=== PATIENT | female | born 1965 | race Caucasian/White ===

== ENCOUNTER → 2020-01-15 08:39 | Outpatient (CLI) | payer BC, SELFPAY ==
--- NOTE | ~2020-01-15 | MMUS_ITS ---
EXAMINATION: MM diagnostic florin BI w amadou, US breast BI limited HISTORY: Patient with history of bilateral white nipple discharge. Family history of breast cancer in her mother. TECHNIQUE: Craniocaudal, mediolateral, and mediolateral oblique 3-D tomosynthesis images of the breas ts were performed and synthetic 2-D images were generated. CAD analysis was submitted and interpreted . High resolution limited bilateral breast ultrasound was performed. COMPARISON: 02/19/2018, 01/22/2017, 02/28/2015, 01/12/2013 BREAST PARENCHYMAL COMPOSITION: The breasts are heterogeneously dense, which may obscure small masses . FINDINGS: MAMMOGRAPHIC FINDINGS: There is no evidence of suspicious mass, calcification, or architectural distortion in either breast to suggest malignancy. There has been no suspicious interval change. No mammographic correlate is id entified for the patient's nipple discharge in either breast. ULTRASOUND: No sonographic correlate is identified for the patient's nipple discharge in either breast. IMPRESSION: 1. No specific mammographic or sonographic correlate is identified for the patient's bilateral nipple discharge. Further evaluation at this time should be based on clinical assessment. Continued follow- up physical examination is recommended. 2. Recommend routine screening mammography in one year. BI-RADS Category 1: Negative Reviewed, dictated and finalized at location A. IMPRESSION: 1. No specific mammographic or sonographic correlate is identified for the stepan ent's bilateral nipple discharge. Further evaluation at this time should be bas ed on clinical assessment. Continued follow-up physical examination is recommen ded. 2. Recommend routine screening mammography in one year. BI-RADS Category 1: Negative
== END ==
PROVIDERS: PCP Family Medicine; Visit Provider Nurse Practitioner
DX: N64.52 Nipple discharge (principal); N64.4 Mastodynia
CPT/HCPCS: 76642; 77062; 77066; G0279

== ENCOUNTER 2020-01-19 12:13 | Outpatient (CLI) | payer BC, SELFPAY ==
--- NOTE | 2020-01-19 12:27 | ECG_ITS ---
Measurements Intervals Point Comfort Rate: 75 P: -37 MD: 175 QRS: 56 QRSD: 67 T: 63 QT: 353 QTc: 395 Interpretive Statements SINUS OR ECTOPIC ATRIAL RHYTHM RSR' IN V1 OR V2, PROBABLY NORMAL VARIANT BORDERLINE ECG Electronically Signed On 01-19-2020 13:32:03 CDT by Roddy Wyatt D.O.
== END 2020-01-19 12:14 | disposition home or self-care (01) ==
PROVIDERS: PCP Family Medicine; Visit Provider Nurse Practitioner Family
DX: R07.9 Chest pain, unspecified (principal); R94.31 Abnormal electrocardiogram [ECG] [EKG]
CPT/HCPCS: 93005

== ENCOUNTER 2020-01-26 08:56 | Outpatient (CLI) | payer BC, SELFPAY ==
--- NOTE | 2020-01-29 07:49 | WPDHOLTEREM ---
Holter/Event Monitor Holter/Event Monitor Date of procedure: 01/26/20 Procedure Type: 24 hour holter monitor Indications: Chest pain Conclusion: 1. 24 hour holter monitor on 01/26/20. 2. Underlying rhythm is sinus rhythm. HR range 59-141 bpm; average HR 87 bpm. 3. There are 20 premature supraventricular complexes and 3 supraventricular couplets. No supraventricular tachycardia. 4. There is one premature ventricular complex. No ventricular tachycardia. 5. No sinoatrial or atrioventricular blocks. No significant pauses greater than 2 seconds. 6. Patient reports 8 episodes of pain which demonstrate Sinus rhythm, HR range 79-101 bpm.
== END 2020-01-26 08:57 | disposition home or self-care (01) ==
LOC: ANHCARD 08:59
PROVIDERS: PCP Family Medicine; Visit Provider Nurse Practitioner Family
DX: R07.89 Other chest pain (principal)
CPT/HCPCS: 93225; 93226

== ENCOUNTER 2020-02-26 09:06 | Outpatient (CLI) | payer BC, SELFPAY ==
--- NOTE | 2020-02-26 09:19 | EST_ITS ---
Patient Info Name: Dee Bills Age: 54 years : 1965 Gender: Female Ht: 64 in Wt: 125 lbs BSA: 1.60 m2 Exam Date: 02/26/2020 9:33 AM Exam Location: [facility] Stress Patient Status: Outpatient Admit Date: 02/26/2020 Staff Ordering Physician: Ayesha Dangelo NP Attending Provider: Ayesha Dangelo NP Exercise Technologist: Yolie Canales RDCS Exercise Physician: Roddy Wyatt DO Exam Type: CA stress test treadmill Study Info Indications R07.9 - Chest pain, unspecified A treadmill exercise stress test was performed. Summary 1. 1. Negative Natalio exercise stress test for ischemic ST changes by ECG criteria. 2. 2. Good functional capacity, achieving 7 METs of workload. 3. 3. Baseline hypertension. 4. 4. Appropriate HR response to exercise. 5. 5. Appropriate HR recovery at 1 minute post exercise. 6. 6. No imaging with stress testing. 7. 7. Patient informed of the above results. Protocol: Natalio Stress ECG Details Stage: REST Duration (min): 1 min : 13 sec Speed (mph): 0.0 Grade (%): 0 HR (bpm): 94 SBP (mmHg): 154 DBP (mmHg): 88 METS: --- Stage: REST Duration (min): 8 min : 21 sec Speed (mph): 0.0 Grade (%): 0 HR (bpm): 94 SBP (mmHg): 154 DBP (mmHg): 88 METS: --- Stage: STAGE 1 Duration (min): 1 min : 0 sec Speed (mph): 1.7 Grade (%): 10 HR (bpm): 116 SBP (mmHg): 154 DBP (mmHg): 88 METS: --- Stage: STAGE 1 Duration (min): 2 min : 0 sec Speed (mph): 1.7 Grade (%): 10 HR (bpm): 130 SBP (mmHg): 154 DBP (mmHg): 88 METS: --- Stage: STAGE 1 Duration (min): 3 min : 0 sec Speed (mph): 1.7 Grade (%): 10 HR (bpm): 140 SBP (mmHg): 182 DBP (mmHg): 59 METS: --- Stage: STAGE 2 Duration (min): 1 min : 0 sec Speed (mph): 2.5 Grade (%): 12 HR (bpm): 145 SBP (mmHg): 182 DBP (mmHg): 59 METS: --- Stage: STAGE 2 Duration (min): 2 min : 0 sec Speed (mph): 2.5 Grade (%): 12 HR (bpm): 151 SBP (mmHg): 199 DBP (mmHg): 66 METS: --- Stage: STAGE 2 Duration (min): 3 min : 0 sec Speed (mph): 2.5 Grade (%): 12 HR (bpm): 153 SBP (mmHg): 199 DBP (mmHg): 66 METS: --- Stage: RECOVERY Duration (min): 0 min : 59 sec Speed (mph): 0.0 Grade (%): 0 HR (bpm): 133 SBP (mmHg): 189 DBP (mmHg): 65 METS: --- Stage: RECOVERY Duration (min): 1 min : 59 sec Speed (mph): 0.0 Grade (%): 0 HR (bpm): 119 SBP (mmHg): 189 DBP (mmHg): 65 METS: --- Stage: RECOVERY Duration (min): 2 min : 59 sec Speed (mph): 0.0 Grade (%): 0 HR (bpm): 117 SBP (mmHg): 168 DBP (mmHg): 62 METS: --- Stage: RECOVERY Duration (min): 3 min : 59 sec Speed (mph): 0.0 Grade (%): 0 HR (bpm): 109 SBP (mmHg): 168 DBP (mmHg): 62 METS: --- Stage: RECOVERY D
== END 2020-02-26 09:07 | disposition home or self-care (01) ==
PROVIDERS: PCP Family Medicine; Visit Provider Nurse Practitioner Family
DX: I49.9 Cardiac arrhythmia, unspecified (principal); R07.9 Chest pain, unspecified
CPT/HCPCS: 93017

== ENCOUNTER 2020-06-10 10:51 | Outpatient (CLI) | payer BC, SELFPAY ==
--- NOTE | ~2020-06-10 | MR_ITS ---
MR breast BI wo/w con 06/10/2020 15:09 WARP SCOURING VAT TENDER INDICATION: Nipple discharge TECHNIQUE: MRI of the breasts perform using standard protocol pre-and post IV contrast with the follo wing sequences: Axial T2 STIR, axial T1, axial vibrant T1 with fat suppression precontrast and multip hasic postcontrast. COMPARISON: Comparison to multiple prior studies sequentially, with oldest reviewed study dated 01/22. FINDINGS: There are no abnormalities on the precontrast sequences. There is mild background parenchym al enhancement. In the lower inner quadrant of the right breast at 5:00 posteriorly there is a 3 mm f oci of enhancement with rapid washout kinetics, likely benign intramammary lymph node. There are mila tional scattered foci of nonmass-like enhancement the right breast, consistent with background enhanc ement. LEFT BREAST: No signal abnormalities on precontrast sequences. There is mild background parenchymal enhancement. In the left breast at 3:00 posteriorly there is a 6 x 5 x 2 mm enhancing mass with rapid washout kinetics. There appears to be a fatty hilum on fat suppression sequence, consistent with lym ph node. In the lower outer quadrant of the left breast at 5:00 posteriorly there is a 4 mm focus of enhancement with rapid washout kinetics, also with fatty hilum, consistent with intramammary lymph no de. IMPRESSION: 1: Right breast: Benign findings. BI-RADS Category 2. 2: Left breast: Benign findings. BI-RADS Category 2.. Routine yearly screening mammogram and regular clinical breast examination are recommended. Follow-up MRI may be useful for supplementing mammographic evaluation as clinically indicated. Reviewed, dictated and finalized at location A. SCOURING VAT TENDER IMPRESSION: 1: Right breast: Benign findings. BI-RADS Category 2. 2: Left breast: Benign findings. BI-RADS Category 2.. Routine yearly screening mammogram and regular clinical breast examination are recommended. Follow-up MRI may be useful for supplementing mammographic evaluation as clinic ally indicated.
[2020-06-10 11:39] LABS: Estimated Glomerular Filt Rate > 60
== END 2020-06-10 10:52 | disposition home or self-care (01) ==
PROVIDERS: PCP Family Medicine
DX: N64.52 Nipple discharge (principal); N64.4 Mastodynia
CPT/HCPCS: 77049; A9577; C8908

== ENCOUNTER → 2020-09-09 11:14 | Outpatient (CLI) | payer BC, SELFPAY ==
--- NOTE | ~2020-09-09 | CT_ITS ---
EXAMINATION: CT lung screening DATE: 09/09/2020 11:32 INDICATION: Personal history of tobacco dependence, prior smoker with 30 pack year history TECHNIQUE: Computed tomography (CT) of the chest was performed without intravenous contrast. The dose -length product (DLP) was 46.70 mGy-cm. Automated exposure control and iterative reconstruction techn ique were employed. COMPARISON: None FINDINGS: There is mild emphysema. Scarring is present in the lung apices. Calcified pulmonary nodule s are consistent with old granulomatous disease. The lungs are free of acute opacities. There is no p leural effusion or pneumothorax. No pathologically enlarged thoracic lymph nodes are identified. The heart size is normal. Calcified coronary artery atherosclerosis is noted. There is a 9 mm nonobstruct ing stone of the left kidney upper pole. There is mild thoracic spondylosis. IMPRESSION: 1. Lung-RADS category 1: Negative. Continue annual screening with noncontrast low-dose chest CT in 12 months. Reviewed, dictated and finalized at location A. PHONE TECHNICIAN IMPRESSION: 1. Lung-RADS category 1: Negative. Continue annual screening with noncontrast l ow-dose chest CT in 12 months.
== END ==
PROVIDERS: PCP Family Medicine; Visit Provider Nurse Practitioner Family
DX: Z12.2 Encounter for screening for malignant neoplasm of respiratory organs (principal); Z87.891 Personal history of nicotine dependence
CPT/HCPCS: 71271

== ENCOUNTER → 2020-10-14 13:51 | Outpatient (CLI) | payer BC, SELFPAY ==
--- NOTE | ~2020-10-14 | XR_ITS ---
XR abdomen/kub 1V DATE: 10/14/2020 14:56 INDICATION: Left kidney stones TECHNIQUE: AP projection, 2 views COMPARISON: 09/19/2014 KUB FINDINGS: There is a prominent amount fecal material in the colon but no evidence of bowel obstructio n. The psoas shadows are intact. No visceromegaly is evident. There is approximately calcification overlying the left upper quadrant, unchanged since 09/19/2014. IMPRESSION: Prominent of fecal material in the colon Reviewed, dictated and finalized at Location A. Reviewed, dictated and finalized at location A.
== END ==
PROVIDERS: Visit Provider Nurse Practitioner Adult Health
DX: N20.0 Calculus of kidney (principal)
CPT/HCPCS: 74018

== ENCOUNTER → 2020-10-21 14:21 | Outpatient (CLI) | payer BC, SELFPAY ==
--- NOTE | ~2020-10-21 | XR_ITS ---
XR abdomen/kub 1V 10/21/2020 14:35 Indication: Left renal stone Procedure: KUB Comparison: 09/09/2020 Findings: Bowel gas pattern is nonobstructive with moderate colonic fecal loading. There is a 9 mm ca lcification of the left kidney at the upper pole. Lung bases unremarkable. Impression: 1: Left renal calcification measuring 9 mm, unchanged. Reviewed, dictated and finalized at location A. Impression: 1: Left renal calcification measuring 9 mm, unchanged.
== END ==
PROVIDERS: Visit Provider Nurse Practitioner Adult Health
DX: N20.0 Calculus of kidney (principal)
CPT/HCPCS: 74018

== ENCOUNTER 2020-11-11 07:41 | Outpatient (CLI) | payer BC, SELFPAY ==
[2020-11-11 08:48] LABS: INR 0.9; Prothrombin Time 12.4 Seconds (11.1-14.7)
[2020-11-11 08:49] LABS: Partial Thromboplastin Time 26.9 SECONDS (22.3-36.8)
== END 2020-11-11 07:42 | disposition home or self-care (01) ==
LOC: ANHSURGERY 07:51
PROVIDERS: PCP Family Medicine; Visit Provider Urology
DX: Z01.812 Encounter for preprocedural laboratory examination (principal); N20.0 Calculus of kidney
CPT/HCPCS: 36415; 85610; 85730; 87086

== ENCOUNTER → 2020-11-15 04:02 | Outpatient (CLI) | payer BC, SELFPAY ==
[2020-11-15 20:07] LABS: SARS-CoV-2 RNA PCR Negative
== END ==
PROVIDERS: PCP Family Medicine; Visit Provider Urology
DX: Z01.812 Encounter for preprocedural laboratory examination (principal); Z20.822 Contact with and (suspected) exposure to COVID-19
CPT/HCPCS: C9803; U0003; U0005

== ENCOUNTER 2020-11-18 03:51 | Day surgery (SDC) | payer BC, SELFPAY ==
[2020-11-07 13:54] VITALS: BMI 23.1
--- NOTE | 2020-11-11 08:35 | P.HP_ITS ---
History of Present Illness History of Present Illness Consent: Risks, benefits, and alternatives have been discussed and questions answered. Patient agrees to proceed with procedure. Chief complaint: Left renal stone Narrative: Dee Bills is a 55 year old female underwent a CT chest for non urological reasons. This revealed a nonobstructing 9 mm calcified left renal calculus. She has no prior history urolithiasis and seems to be having little if any pain or discomfort from this stone. After discussion of therapeutic options including observation endoscopic extraction and ESWL, she has elected for the latter. She is aware the risks including, but not limited to,. A completely treat the stone with residual fragments the could obstruct her ureter, renal injury and perinephric hematoma. Review of Systems Cardiovascular: Cardiovascular: Denies chest pain, Denies lightheadedness, Denies palpitations and Denies dyspnea Respiratory: Respiratory: Denies dyspnea Gastrointestinal: Gastrointestinal: Denies diarrhea, Denies nausea and Denies vomiting Genitourinary: Genitourinary: Denies hematuria and Denies dysuria Endocrine: Endocrine: Denies palpitations [facility] Family History Family History Mother Family history of diabetes mellitus in first degree relative Sibling Family history of diabetes mellitus in first degree relative Other Diabetes mellitus Family history of arthritis Family history of cardiovascular disease Hypertension Social History Social History Smoking packs per day: 1 Smoking cigarettes per day: 20.0 Years smoked: 25 Smoking pack-years: 25.00 Smoking status: Former smoker Tobacco type: cigarettes Smoking end date: 07/01/15 Alcohol intake: never Spiritual care concerns: No Meds Home Medications and Allergies Home Medications Medication Instructions Recorded Confirmed Type Lacto.acidophilus-Bif.animalis 1 cap PO DAILY 11/07/20 11/07/20 History [Daily Probiotic] calcium citrate [Citracal] 200 mg PO DAILY 11/07/20 11/07/20 History cholecalciferol (vitamin D3) 25 mcg PO DAILY 11/07/20 11/07/20 History multivitamin [One A Day Vitamin] 1 tablet PO DAILY 11/07/20 11/07/20 History Allergies Allergy/AdvReac Type Severity Reaction Status Date / Time No Known Allergies Allergy Verified 11/07/20 13:37 Exam Const: General: no acute distress Resp: Effort & Inspection: normal respiratory effort GI: Inspection: non-distended GI Palp: No abdominal tenderness and No Gu arding due to palpation present (GI) Auscultation: normal bowel sounds Assessment and Plan Assessment and plan (1) Kidney stone: Code(s): N20.0 - Calculus of kidney Status: Acute Assessment and Plan: * Left ESWL
--- NOTE | 2020-11-17 11:57 | WPDANESEPPF ---
Anes - Initial Pre Proc Eval Procedure: Operation Date: 11/18/20 07:30 Proposed Procedures p Left Extracorporeal Shock Wave Lithotripsy - Jose Harris MD Date/Time: 11/17/20 11:57 Surgeon: Jose Harris MD Pre Op Diagnosis: Left renal stone Patient Data Age: 55 Gender: F Height: 1.63 m Weight: 61.3 kg Allergies Allergy/AdvReac Type Severity Reaction Status Date / Time No Known Allergies Allergy Verified 11/18/20 06:23 Home Medications Medication Instructions Recorded Confirmed Type Lacto.acidophilus-Bif.animalis 1 cap PO DAILY 11/07/20 11/18/20 History [Daily Probiotic] calcium citrate [Citracal] 200 mg PO DAILY 11/07/20 11/18/20 History cholecalciferol (vitamin D3) 25 mcg PO DAILY 11/07/20 11/18/20 History multivitamin [One A Day Vitamin] 1 tablet PO DAILY 11/07/20 11/18/20 History Patient hx anesthesia problems: none Family hx anesthesia problems: none [facility] Past Medical History Medical History (Updated 11/17/20 @ 11:57 by Angel Gordon DO) Anxiety GERD (gastroesophageal reflux disease) Kidney stone Family History Family History Mother Family history of diabetes mellitus in first degree relative Sibling Family history of diabetes mellitus in first degree relative Other Diabetes mellitus Family history of arthritis Family history of cardiovascular disease Hypertension Social History Social History Smoking packs per day: 1 Smoking cigarettes per day: 20.0 Years smoked: 25 Smoking pack-years: 25.00 Smoking status: Former smoker Tobacco type: cigarettes Smoking end date: 07/01/15 Alcohol intake: never Living arrangements: with family Spiritual care concerns: No Anes - Eval Final PreProcedure Day of Procedure 11/17/20 11:57 Patient weight: normal Heart: regular rate and rhythm Lungs: clear to auscultation and normal air movement Airway: Mallampati scale class III Neurological: alert and oriented Last oral intake: >/= 8 hours ASA classification: II Emergent: no Anesthetic plan: proceed Anesthesia type and monitoring: general LMA and standard monitoring Informed Consent: The patient's anesthetic plan and its attendant risks and benefits were discussed with the patient/family/POA. Questions were solicited and answers provided to the satisfaction of the patient/family/POA.
[2020-11-18] VITALS (7 sets, daily range): BP systolic 139–171; BP diastolic 65–75; PULSE 72–98; RESP 14–18; TEMP 36.2–36.9; O2SAT 99–100
--- NOTE | ~2020-11-18 | XR_ITS ---
EXAMINATION: XR abdomen/kub 1V DATE: 11/18/2020 06:08 INDICATION: Urolithiasis. TECHNIQUE: A supine view of the abdomen on 2 radiographs was obtained. COMPARISON: Abdomen radiographs 10/21/2020, pelvis radiograph 04/03/2017 FINDINGS: There are no dilated loops of bowel. There is a 10 mm stone in left kidney. The kidneys are obscured by bowel. There is a chronic small phlebolith in right pelvis. IMPRESSION: 1. 10 mm left kidney stone. Reviewed, dictated and finalized at location A. IMPRESSION: 1. 10 mm left kidney stone.
--- NOTE | 2020-11-18 06:38 | WPDHPUPDATE1 ---
History and Physical Update Update Date/Time: 11/18/20 06:38 History and Physical has been reviewed, including an updated exam of the patient. There are NO changes in the patient's condition. Risks, benefits, and alternatives have been discussed and questions answered. Patient agrees to proceed with procedure.
[2020-11-18] MEDS: LACTATED RINGERS 1,000 ML 30 ML IV CONT ×2 (06:40→08:22)
[2020-11-18] MEDS: ceFAZolin 2 GM/D5W 50 ML 2 GM/50 ML BAG IVPB (07:27)
--- NOTE | 2020-11-18 07:51 | PM.OP ---
Procedure Note - Brief Procedure Note - Brief Date of procedure: 11/18/20 Pre-op diagnosis: Left renal stone Post-op diagnosis: same Procedure performed: Left ESWL Description of procedure: The patient was brought to the operative suite where she was placed in the supine position on the Dornier lithotripsy table. The focal point of the lithotripter was placed at a 9mm left upper pole calculus. A total of 2500 shocks were delivered at a power setting of 4. There appeared to be good fragmentation of the stone. The patient tolerated the procedure well and was taken to the recovery room in good condition. Anesthesia: GLMA Surgeon: Jose Harris MD Drains: No Packing: No Pathology: none sent Complications: No immediate complications Condition: stable Disposition: PACU
== END 2020-11-18 09:44 | disposition home or self-care (01) ==
PROVIDERS: PCP Family Medicine; Visit Provider Urology
PROC: (CPT 50590; principal; 2020-11-18 07:30)
DX: N20.0 Calculus of kidney (principal); Z87.891 Personal history of nicotine dependence
CPT/HCPCS: 50590; 74018; J0690; J1100; J2250; J2405; J2704; J3010; J7120

== ENCOUNTER → 2020-12-05 08:23 | Outpatient (CLI) | payer BC, SELFPAY ==
--- NOTE | ~2020-12-05 | XR_ITS ---
XR abdomen/kub 1V 12/05/2020 09:16 Indication: Left kidney stone Procedure: KUB Comparison: Comparison to multiple prior studies sequentially, with oldest reviewed study dated 09/19. Findings: Nonobstructive bowel gas pattern. Moderate colonic fecal loading. There are calcifications at the upper pole of the left kidney. No acute osseous abnormality. Lung bases unremarkable. Impression: 1: No acute abdominal abnormality. Reviewed, dictated and finalized at location B. Impression: 1: No acute abdominal abnormality.
== END ==
PROVIDERS: Visit Provider Nurse Practitioner Adult Health
DX: N20.0 Calculus of kidney (principal)
CPT/HCPCS: 74018

== ENCOUNTER → 2021-03-17 09:14 | Outpatient (CLI) | payer BC, SELFPAY ==
--- NOTE | ~2021-03-17 | MMUS_ITS ---
EXAMINATION: MM diagnostic florin BI w amadou, US breast BI complete HISTORY: Bilateral nipple discharge for 3 years. TECHNIQUE: Additional 3-D tomosynthesis images of the breasts were performed and synthetic 2-D images were generated. CAD analysis was submitted and interpreted. High resolution bilateral complete breas t ultrasound was performed. COMPARISON: Comparison to multiple prior studies sequentially, with oldest reviewed study dated 01/12. BREAST PARENCHYMAL COMPOSITION: The breasts are heterogenously dense, which may obscure small masses. FINDINGS: MAMMOGRAPHIC FINDINGS: There are no suspicious masses, calcifications or architectural distortion in either breast to sugges t malignancy. ULTRASOUND: Complete bilateral breast ultrasound: Normal heterogeneous echotexture without focal solid or cystic mass in either breast. IMPRESSION: 1. No evidence for malignancy in either breast. 2. Routine yearly screening mammogram and regular clinical breast examination are recommended. Follow -up clinical management for nipple discharge. BI-RADS Category 1: Negative Reviewed, dictated and finalized at location A. IMPRESSION: 1. No evidence for malignancy in either breast. 2. Routine yearly screening mammogram and regular clinical breast examination a re recommended. Follow-up clinical management for nipple discharge. BI-RADS Category 1: Negative
== END ==
PROVIDERS: PCP Family Medicine; Visit Provider Nurse Practitioner
DX: N64.52 Nipple discharge (principal)
CPT/HCPCS: 76641; 77062; 77066; G0279

== ENCOUNTER → 2021-03-17 09:17 | Outpatient (CLI) | payer BC, SELFPAY ==
--- NOTE | ~2021-03-17 | US_ITS ---
EXAMINATION: US thyroid EXAM DATE: 03/17/2021 10:27 INDICATION: Goiter. TECHNIQUE: Multiple grayscale and Doppler images of the thyroid were obtained (by a technologist who performed the scan) and subsequently reviewed. Individual nodules and recommendations may be reporte d in accordance with TI-RADS system as designated by the 2017 ACR White Paper TI-RADS committee. The re is no prior study for comparison. FINDINGS: The right thyroid lobe measures 4.1 x 1.4 x 1.3 cm, the left measuring 4.4 x 1.6 x 1.2 cm. There is m ildly diffusely heterogeneous thyroid echogenicity. There are several small thyroid nodules. Largest is on the right side, appears to be anechoic with increased through transmission, measuring 10 x 7 x 7 mm. Next largest measures 5 mm on the left. IMPRESSION: Small thyroid nodules not likely clinically significant. Reviewed, dictated and finalized at location B.
== END ==
PROVIDERS: Visit Provider Internal Medicine Endocrinology, Diabetes & Metabolism
DX: E04.2 Nontoxic multinodular goiter (principal)
CPT/HCPCS: 76536

== ENCOUNTER → 2021-04-28 12:30 | Outpatient (CLI) | payer BC, SELFPAY ==
--- NOTE | ~2021-04-28 | DEXA_ITS ---
Bone Density Report Name: Dee Bills Age: 55 Sex: Female Ethnicity: White Date of : 1965 Indication: osteopenia; monitoring treatment; postmenopausal Referring Provider: DANAY, PEMA Study: Bone densitometry was performed. Exam Date: April 28, 2021 Accession number: [id number] Bone Density: Region BMD T-score Z-score Classification AP Spine (L1, L2, L4) 0.980 -0.5 0.6 Normal Femoral Neck (Left) 0.643 -1.9 -0.8 Osteopenia Total Hip (Left) 0.714 -1.9 -1.2 Osteopenia Femoral Neck (Right) 0.656 -1.7 -0.7 Osteopenia Total Hip (Right) 0.734 -1.7 -1.0 Osteopenia Total Hip Mean 0.724 -1.8 -1.1 Osteopenia World Health Organization criteria for BMD impression classify patients as: Normal (T-score at or above -1.0), Osteopenia (T-score between -1.0 and -2.5), or Osteoporosis (T-score at or below -2.5). 10-year Fracture Risk: FRAX not reported because: Treated for osteoporosis Previous Exams: Region Exam Age BMD T-score BMD Change BMD Change Date g/cm2 vs Baseline vs Previous AP Spine(L1, L2, L4) 04/28/2021 55 0.980 -0.5 0.005 0.010 02/13/2019 53 0.969 -0.6 -0.005 -0.005 01/22/2017 51 0.974 -0.5 Total Hip(Left) 04/28/2021 55 0.714 -1.9 0.010 -0.004 02/13/2019 53 0.718 -1.8 0.014 0.014 01/22/2017 51 0.704 -1.9 Total Hip(Right) 04/28/2021 55 0.734 -1.7 0.025 0.015 02/13/2019 53 0.719 -1.8 0.010 0.010 01/22/2017 51 0.709 -1.9 *Denotes significance at 95% confidence level, LSC for AP Spine = 0.022 g/cm2, LSC for Total Hip = 0.027 g/cm2 Clinical Information Provided by Patient: Is being treated for osteoporosis Has used the following medications: Fosamax (i.e. alendronate), Vitamin D, Calcium, MTV Patient maximum height was 64.0 Menopause Age: 50 No regular weight bearing exercise Does not regularly consume dairy products Drinks caffeinated beverages Onset of menses at age 13 Number of children 2 Impression: The patient has low bone mass, based on the Left Total Hip T-score. No significant bone loss was observed. Discussion: PATIENT UNDER TREATMENT WITH NO SIGNIFICANT BMD LOSS SINCE LAST EXAM. In an untreated patient, BMD typically declines with age. A lack of decline or gain is usually a sign that treatment is efficacious and fracture risk is reduced. It is important to ask patients
== END ==
PROVIDERS: PCP Family Medicine; Visit Provider Nurse Practitioner
DX: Z78.0 Asymptomatic menopausal state (principal); M85.89 Other specified disorders of bone density and structure, multiple sites
CPT/HCPCS: 77080

== ENCOUNTER → 2021-06-02 12:48 | Outpatient (CLI) | payer BC, SELFPAY ==
--- NOTE | ~2021-06-02 | XR_ITS ---
EXAMINATION: XR abdomen/kub 1V DATE: 06/02/2021 13:03 INDICATION: Left kidney stone. TECHNIQUE: A supine view of the abdomen on 2 radiographs was obtained. COMPARISON: Abdomen radiograph 12/05/2020, chest CT 09/09/20 FINDINGS: There are no dilated loops of bowel. There is a phlebolith in right pelvis. There is a clus ter of calcifications overlying left kidney upper pole with the largest calcification measuring at le ast 5 mm. IMPRESSION: 1. Cluster of calcifications overlying left kidney upper pole, which may be parenchymal. Reviewed, dictated and finalized at location A. D MAKER IMPRESSION: 1. Cluster of calcifications overlying left kidney upper pole, which may be par enchymal.
== END ==
PROVIDERS: Visit Provider Urology
DX: N20.0 Calculus of kidney (principal)
CPT/HCPCS: 74018

== ENCOUNTER → 2021-06-20 10:01 | Outpatient (CLI) | payer BC, SELFPAY ==
[2021-06-21 02:05] LABS: SARS-CoV-2 RNA PCR Negative
== END ==
PROVIDERS: PCP Family Medicine; Visit Provider Nurse Practitioner Family
DX: R09.89 Other specified symptoms and signs involving the circulatory and respiratory systems (principal); Z20.822 Contact with and (suspected) exposure to COVID-19
CPT/HCPCS: C9803; U0003; U0005

== ENCOUNTER 2021-08-04 00:41 | Day surgery (SDC) | payer BC, SELFPAY ==
[2021-07-25 13:33] VITALS: BMI 23.1
--- NOTE | 2021-08-03 15:55 | P.PNAN_ITS ---
Anes - Eval Pre Procedure Procedure: Operation Date: 08/04/21 11:30 Proposed Procedures p Colonoscopy - Rolando Nichols MD Date/Time: 08/03/21 15:55 Pre Op Diagnosis: positive cologuard Patient Data Age: 55 Gender: F Height: 1.63 m Weight: 61.3 kg Allergies Allergy/AdvReac Type Severity Reaction Status Date / Time No Known Allergies Allergy Verified 07/25/21 13:33 Home Medications Medication Instructions Recorded Confirmed Type multivitamin 1 tablet PO DAILY 11/07/20 07/25/21 History esomeprazole magnesium [Nexium] 20 mg PO DAILY 07/25/21 07/25/21 History hyoscyamine sulfate 0.125 mg tablet 0.125 mg PO Q4H #6 tablet 08/03/21 Rx Patient hx anesthesia problems: none Family hx anesthesia problems: none Results Review: All pre-operative results and documents have been reviewed as part of the pre-operative evaluation. [facility] Past Medical History Medical History Anxiety BMI 24.0-24.9, adult GERD (gastroesophageal reflux disease) Kidney stone Family History Family History Mother Family history of diabetes mellitus in first degree relative Diabetes mellitus Breast cancer Sibling Family history of diabetes mellitus in first degree relative COVID-19 Father Other Family history of arthritis Family history of cardiovascular disease Hypertension Social History Social History Smoking packs per day: 1 Smoking cigarettes per day: 20.0 Years smoked: 25 Smoking pack-years: 25.00 Smoking status: Former smoker Tobacco type: cigarettes Smoking end date: 07/01/15 Alcohol intake: never Substance use: never Substance use type: does not use Living arrangements: with family 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
[2021-08-04 10:35] VITALS: BP 114/71; PULSE 103; RESP 18; TEMP 37.3; O2SAT 98; BMI 21.9
[2021-08-04] MEDS: LACTATED RINGERS 1,000 ML 150 ML IV CONT (11:01)
--- NOTE | 2021-08-04 11:04 | WPDANESEFPP ---
Anes - Eval Final PreProcedure Day of Procedure 08/04/21 11:04 Patient weight: normal Heart: regular rate and rhythm Lungs: clear to auscultation Airway: Mallampati scale class II Neurological: alert and oriented Last oral intake: >/= 8 hours ASA classification: II Emergent: no Anesthetic plan: proceed Anesthesia type and monitoring: general GIVS and standard monitoring Results Review: All pre-operative results and documents have been reviewed as part of the pre-operative evaluation. Informed Consent: The patient's anesthetic plan and its attendant risks and benefits were discussed with the patient/family/POA. Questions were solicited and answers provided to the satisfaction of the patient/family/POA.
--- NOTE | 2021-08-04 11:09 | P.HP_ITS ---
History of Present Illness History of Present Illness Consent: Risks, benefits, and alternatives have been discussed and questions answered. Patient agrees to proceed with procedure. Chief complaint: positive cologuard Narrative: Dee Bills is a 55 year old female Referred for colon cancer screening. She recently did a Cologuard test that was positive. This is her 1st colonoscopy Review of Systems Review of Systems: All systems reviewed & are unremarkable except as noted in HPI and below PMFSH Past Medical History Medical History Anxiety BMI 24.0-24.9, adult GERD (gastroesophageal reflux disease) Kidney stone Family History Family History Mother Family history of diabetes mellitus in first degree relative Diabetes mellitus Breast cancer Sibling Family history of diabetes mellitus in first degree relative COVID-19 Father Other Family history of arthritis Family history of cardiovascular disease Hypertension Social History Social History Smoking packs per day: 1 Smoking cigarettes per day: 20.0 Years smoked: 25 Smoking pack-years: 25.00 Smoking status: Former smoker Tobacco type: cigarettes Smoking end date: 07/01/15 Alcohol intake: never Substance use: never Substance use type: does not use Living arrangements: with family 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 Gender identity (if verbalized by the patient): Female Spiritual care concerns: No Meds Home Medications and Allergies Home Medications Medication Instructions Recorded Confirmed Type multivitamin 1 tablet PO DAILY 11/07/20 07/25/21 History esomeprazole magnesium [Nexium] 20 mg PO DAILY 07/25/21 08/04/21 History hyoscyamine sulfate 0.125 mg tablet 0.125 mg PO Q4H #6 tablet 08/03/21 08/04/21 Rx ondansetron 4 mg disintegrating 4 mg PO Q6H #10 tablet 08/03/21 08/04/21 Rx tablet Allergies Allergy/AdvReac Type Severity Reaction Status Date / Time No Known Allergies Allergy Verified 08/04/21 10:44 Vital Signs Vital Signs - 24 hr 08/04/21 10:35 Temperature 37.3 C Pulse Rate 103 H Respiratory Rate 18 Blood Pressure 114/71 Pulse Oximetry 98 Exam Resp: Auscultation: clear to auscultation bilaterally Cardio: Rate: regular rate Rhythm: regular rhythm GI: GI Palp: Yes Soft to palpation and No Tenderness to palpation present (GI) Assessment and Plan Assessment and plan (1) Colon cancer screening: Code(s): Z12.11 - Encounter for screening for malignant neoplasm of colon Status: Acute Assessment and Plan: Colonoscopy with possible biopsy or polypectomy or cautery or injection of substances.
[2021-08-04 11:36] VITALS: BP 119/67; PULSE 107; RESP 25; O2SAT 97
[2021-08-04 11:46] VITALS: BP 115/70; PULSE 93; RESP 19; O2SAT 97
[2021-08-04 11:54] VITALS: BP 126/56; PULSE 88; RESP 21; O2SAT 99
== END 2021-08-04 12:06 | disposition home or self-care (01) ==
PROVIDERS: PCP Family Medicine; Visit Provider Internal Medicine Gastroenterology
PROC: 0DJD8ZZ Inspection of Lower Intestinal Tract, Via Natural or Artificial Opening Endoscopic (ICD-10-PCS; CPT 45378; principal; 2021-08-04 11:30)
DX: Z12.11 Encounter for screening for malignant neoplasm of colon (principal); K57.30 Diverticulosis of large intestine without perforation or abscess without bleeding; R19.5 Other fecal abnormalities; K21.9 Gastro-esophageal reflux disease without esophagitis; Z87.891 Personal history of nicotine dependence
CPT/HCPCS: 45378; J2704; J7120

== ENCOUNTER 2021-08-25 18:18 | Emergency (ER) | payer BC, SELFPAY ==
--- NOTE | 2021-08-25 18:27 | ED.URI ---
HPI - URI/Sore Throat General Chief Complaint: Upper Respiratory Infection Stated Complaint: fever Source: patient and RN notes reviewed Mode of arrival: ambulatory Limitations: no limitations History of Present Illness HPI Narrative: 56-year-old female presents with concern for fever of up to 102 for 2 days. She reports fatigue and chills. Denies other symptoms. She denies body aches, sweats, sore throat, nasal congestion, rhinorrhea, cough, shortness of breath, nausea, vomiting, diarrhea, burning with urination, frequency urgency. She reports she is been taking ibuprofen. MD elicited complaint: sore throat Related Data Home Medications Medication Instructions Recorded Confirmed multivitamin 1 tablet PO DAILY 11/07/20 07/25/21 esomeprazole magnesium [Nexium] 20 mg PO DAILY 07/25/21 08/04/21 Allergies Allergy/AdvReac Type Severity Reaction Status Date / Time No Known Allergies Allergy Verified 08/04/21 10:44 Review of Systems Review of Systems: CONSTITUTIONAL: Reports malaise, chills, fatigue, fever. EYES: Denies visual changes, redness, or discharge. ENT: Denies rhinorrhea, congestion, sinus pain, otalgia and sore throat. CARDIOVASCULAR: Denies chest pain, palpitations, or edema. RESPIRATORY: Denies cough. Denies dyspnea. GASTROINTESTINAL: Denies abdominal pain, nausea, vomiting, diarrhea SKIN: Denies rash or itching. MUSCULOSKELETAL: Denies myalgia. NEUROLOGIC: Denies headache. All systems reviewed & are unremarkable except as noted in HPI and below PMFSH Past Medical History Medical History Anxiety BMI 24.0-24.9, adult GERD (gastroesophageal reflux disease) Kidney stone Family History Family History Mother Family history of diabetes mellitus in first degree relative Diabetes mellitus Breast cancer Sibling Family history of diabetes mellitus in first degree relative COVID-19 Father Other Family history of arthritis Family history of cardiovascular disease Hypertension Social History Social History Smoking packs per day: 1 Smoking cigarettes per day: 20.0 Years smoked: 25 Smoking pack-years: 25.00 Smoking status: Former smoker Tobacco type: cigarettes Smoking end date: 07/01/15 Alcohol intake: never Substance use: never Substance use type: does not use 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 There is no relevant family history pertinent to the presenting complaint Exam Narrative: GENERAL: Nontoxic-appearing and in no acute distress. HEAD: Normocephalic EYES: PERRLA, conjunctivae clear ENT: Nares clear, turbinates edematous and erythematous, clear discharge. Mucous membranes moist. TM pearly ybarra with sharp light reflex bilaterally; no tragal tenderness. Oropharynx not erythematous without lesions. Tonsils not enlarged and without exudate, no drooling, no hoarseness, no trismus, uvula midline. NECK: Supple. No lymphadenopathy CHEST: Clear to auscultation, breath sounds equal. No wheezing, rhonchi, rales, or stridor. No respiratory distress, speaks in full sentences. HEART: Regular rate and rhythm. No murmur heard. ABDOMEN: Soft, non-tender SKIN: Warm, dry, no rash. NEURO: Alert and oriented x3. PSYCH: Normal mood and affect Course Course Emergency Course: Patient is aware of diagnosis, understands and agrees to treatment plan. Anticipatory guidance given. Patient agrees to follow-up as directed and is aware of reasons to seek care at the emergency department. Portions of this record may have been created with voice recognition software Level of Care: Express Care Visit Vital Signs Vital s
[2021-08-25 18:42] VITALS: BP 125/83; PULSE 115; RESP 18; TEMP 36.6; O2SAT 99
== END 2021-08-25 19:16 | disposition home or self-care (01) ==
PROVIDERS: Emergency Provider Nurse Practitioner; PCP Family Medicine
DX: R50.9 Fever, unspecified (principal); Z20.822 Contact with and (suspected) exposure to COVID-19; Z87.891 Personal history of nicotine dependence; K21.9 Gastro-esophageal reflux disease without esophagitis
CPT/HCPCS: 87426; 87804; 99213; C9803; G0463

== ENCOUNTER → 2021-12-29 09:09 | Outpatient (CLI) | payer BC, SELFPAY ==
--- NOTE | ~2021-12-29 | MM_ITS ---
EXAMINATION: MM diagnostic florin BI w amadou HISTORY: Breast pain TECHNIQUE: Additional 3-D tomosynthesis images of the breasts were performed and synthetic 2-D images were generated. CAD analysis was submitted and interpreted. COMPARISON: Comparison to multiple prior studies sequentially, with oldest reviewed study dated 02/28. BREAST PARENCHYMAL COMPOSITION: The breasts are extremely dense, which lowers the sensitivity of mamm ography FINDINGS: There are no suspicious masses, calcifications or architectural distortion in either breast to suggest malignancy. IMPRESSION: 1. No mammographic evidence for malignancy in either breast. 2. Routine yearly screening mammogram and regular clinical breast examination are recommended. BI-RADS Category 1: Negative Reviewed, dictated and finalized at location A. IMPRESSION: 1. No mammographic evidence for malignancy in either breast. 2. Routine yearly screening mammogram and regular clinical breast examination a re recommended. BI-RADS Category 1: Negative
== END ==
PROVIDERS: PCP Family Medicine; Visit Provider Nurse Practitioner
DX: N64.4 Mastodynia (principal); N63.10 Unspecified lump in the right breast, unspecified quadrant
CPT/HCPCS: 77062; 77066; G0279

== ENCOUNTER → 2022-01-25 13:44 | Outpatient (CLI) | payer BC, SELFPAY ==
--- NOTE | ~2022-01-25 | CT_ITS ---
EXAMINATION: CT lung screening DATE: 01/25/2022 14:01 INDICATION: Personal history of nicotine dependence, prior smoker with 30 pack year history TECHNIQUE: Computed tomography (CT) of the chest was performed without intravenous contrast. The dose -length product (DLP) was 38.48 mGy-cm. Automated exposure control and iterative reconstruction techn [email or web address] were employed. COMPARISON: 09/09/2020 FINDINGS: There is mild emphysema. Scarring is present in the lung apices. There is a new 2 mm nodule of the right lower lobe on image 85. Additional smaller nodules of the right lower lobe are new sinc e the prior examination. The lungs are free of acute opacities. No pleural effusion or pneumothorax. No pathologically enlarged thoracic lymph nodes are identified. The heart size is normal. There is ca lcified coronary artery atherosclerosis. There are nonobstructing stone in the left kidney upper pole measures 9 mm. There is mild thoracic spondylosis. IMPRESSION: 1. Lung-RADS category 3: Probably benign. Followup with noncontrast low-dose chest CT in 6 months is recommended. Reviewed, dictated and finalized at location B. IMPRESSION: 1. Lung-RADS category 3: Probably benign. Followup with noncontrast low-dose ch est CT in 6 months is recommended.
== END ==
PROVIDERS: PCP Family Medicine; Visit Provider Nurse Practitioner Family
DX: Z12.2 Encounter for screening for malignant neoplasm of respiratory organs (principal); Z87.891 Personal history of nicotine dependence
CPT/HCPCS: 71271

== ENCOUNTER → 2022-02-27 16:16 | Outpatient (CLI) | payer BC, SELFPAY ==
--- NOTE | ~2022-02-27 | XR_ITS ---
XR chest 2V DATE: 02/27/2022 16:45 INDICATION: Chronic cough TECHNIQUE: 2 views COMPARISON: 01/25/2022 CT lung screening FINDINGS: Since 01/17/2022 there are prominent patchy bilateral pulmonary infiltrates involving the mi d and lower lung zones, most prominent in the right lower lung and left mid and lower lung. The findi ngs are consistent with bilateral pneumonia. No pleural effusion or pulmonary vascular congestion or pneumothorax. Bilateral apical scarring. Normal heart size. No hilar or mediastinal enlargement. Pectus excavatum. IMPRESSION: Interval prominent patchy bilateral pulmonary infiltrates since 01/25/2022, consistent wit h prominent bilateral pneumonia Reviewed, dictated and finalized at location B. IMPRESSION: Interval prominent patchy bilateral pulmonary infiltrates since 12/30, consistent with prominent bilateral pneumonia
== END ==
PROVIDERS: PCP Family Medicine; Visit Provider Nurse Practitioner Family
DX: R05.3 Chronic cough (principal); R91.8 Other nonspecific abnormal finding of lung field
CPT/HCPCS: 71046

== ENCOUNTER → 2022-03-12 14:14 | Outpatient (CLI) | payer BC, SELFPAY ==
--- NOTE | ~2022-03-12 | XR_ITS ---
EXAMINATION: XR chest 2V Exam Date/Time: 03/12/2022 14:20 CDT HISTORY: J18.9 - Pneumonia, unspecified organism Comparison: 02/27/2022, 04/03/2017, CT chest 01/17/2022. RESULT: Lines, tubes, and devices: None. Lungs and pleura: Improving right upper and right middle lobe and left perihilar opacities. Stable d iffuse reticulonodular opacities. Stable biapical pleural thickening, greater on the right. Cardiomediastinal silhouette: Stable. Other: No acute osseous or upper abdominal finding. IMPRESSION: Improving pulmonary opacities, consistent with given history of pneumonia. Reviewed, dictated and finalized at location K.
== END ==
PROVIDERS: PCP Nurse Practitioner Family; Visit Provider Nurse Practitioner Family
DX: J18.9 Pneumonia, unspecified organism (principal); R91.8 Other nonspecific abnormal finding of lung field
CPT/HCPCS: 71046

== ENCOUNTER → 2022-08-17 15:35 | Outpatient (CLI) | payer BC, SELFPAY ==
--- NOTE | ~2022-08-17 | CT_ITS ---
EXAMINATION: CT diagnostic chest wo con DATE: 08/17/2022 15:46 INDICATION: Lung nodule TECHNIQUE: Computed tomography (CT) of the chest was performed without intravenous contrast. The dose -length product was 37.02 mGy-cm. Automated exposure control and iterative reconstruction technique w ere employed. COMPARISON: Comparison to multiple prior studies sequentially, with oldest reviewed study dated 09/09. FINDINGS: There are borderline size mediastinal lymph nodes, unchanged, likely reactive. Heart size n ormal. There is atherosclerosis. No significant pleural or pericardial effusion. There are nonobstruc ting stones in the upper pole of the left kidney. There is chronic apical pleural thickening/scarring . There are scattered calcified granulomas of the lungs. There are stable bilateral pulmonary nodules measuring 3 mm or less. No new pulmonary nodules or masses. No endobronchial lesions. No pneumothora x. No acute osseous abnormality. No focal lytic or blastic lesions. IMPRESSION: 1. Stable small bilateral pulmonary nodules measuring 3 mm or less, likely benign. Follow-up low dose CT chest in 12 months recommended. Reviewed, dictated and finalized at location A. GER STUDY IMPRESSION: 1. Stable small bilateral pulmonary nodules measuring 3 mm or less, likely anand gn. Follow-up low dose CT chest in 12 months recommended.
== END ==
PROVIDERS: PCP Family Medicine; Visit Provider Nurse Practitioner Family
DX: R91.8 Other nonspecific abnormal finding of lung field (principal); Z87.891 Personal history of nicotine dependence
CPT/HCPCS: 71250

== ENCOUNTER → 2022-09-12 14:06 | Outpatient (CLI) | payer BC, SELFPAY ==
--- NOTE | ~2022-09-12 | US_ITS ---
EXAMINATION: US carotid duplex BI DATE: 09/12/2022 14:47 INDICATION: Right carotid artery bruit TECHNIQUE: Grayscale, color Doppler, and pulsed Doppler images of the cervical carotid arteries were obtained. The degree of vessel stenosis is placed in one of the following categories: normal, <50%, 5 0-69%, >=70% but less than near-occlusion, near-occlusion, or total occlusion. Note that percent sten osis relative to normal distal artery lumen diameter is indirectly measured from velocity measurement s as described by Gallo, et al. Radiology 2003; [id number]. COMPARISON: None. FINDINGS: RIGHT: The right common carotid artery (CCA) peak systolic velocity (PSV) is 92 cm/s. The right internal car otid artery (ICA) PSV is 91 cm/s. The right ICA end-diastolic velocity (EDV) is 30 cm/s. The right IC A/CCA PSV ratio is 1.0. Grayscale and color Doppler images yield an estimate of <50% diameter reducti on from plaque in the ICA. The external carotid artery (ECA) PSV is 160 cm/s. There is antegrade flow in the right vertebral artery. LEFT: The left CCA PSV is 86 cm/s. The left ICA PSV is 147 cm/s. The left ICA EDV is 31 cm/s. The left ICA/ CCA PSV ratio is 1.7. Grayscale and color Doppler images yield an estimate of 50-69% diameter reducti on from plaque in the ICA. The ECA PSV is 134 cm/s. There is antegrade flow in the left vertebral art gaurav. IMPRESSION: 1. <50% stenosis in the right internal carotid artery. 2. 50-69% stenosis in the left internal carotid artery. Reviewed, dictated and finalized at location B.
== END ==
PROVIDERS: PCP Family Medicine; Visit Provider Nurse Practitioner Family
DX: M81.8 Other osteoporosis without current pathological fracture (principal); R09.89 Other specified symptoms and signs involving the circulatory and respiratory systems; I65.23 Occlusion and stenosis of bilateral carotid arteries
CPT/HCPCS: 93880

== ENCOUNTER 2023-12-10 14:12 | Outpatient (CLI) | payer SELFPAY ==
--- NOTE | ~2023-12-10 | US_ITS ---
EXAMINATION: US carotid duplex BI DATE: 12/10/2023 14:36 INDICATION: Carotid bruit. Carotid stenosis. TECHNIQUE: Grayscale, color Doppler, and pulsed Doppler images of the cervical carotid arteries were obtained. The degree of vessel stenosis is placed in one of the following categories: normal, <50%, 5 0-69%, >=70% but less than near-occlusion, near-occlusion, or total occlusion. Note that percent sten osis relative to normal distal artery lumen diameter is indirectly measured from velocity measurement s as described by Gallo, et al. Radiology 2003; [id number]. Notes: Normal: Peak systolic velocity <125 centimeters/sec and no plaque <50%. Peak systolic velocity <125 ( EDV <40; ICA/CCA PSV ratio <2.0; used these factors only a tandem lesions or low cardiac output or co ntralateral disease) 50-69 %: PSV 125-230 (EDV 40-100; ratio 2-4) >= 70% but less than near occlusion: PSV greater than 230 (EDV > 100; ratio> 4.0) Near Occlusion: PSV that is variable; markedly narrowed lumen Occlusion: Absent flow on color/spectral Doppler and no lumen on ybarra scale. COMPARISON: None. FINDINGS: RIGHT: The right common carotid artery (CCA) peak systolic velocity (PSV) is 77 cm/s. The right internal car otid artery (ICA) PSV is 129 cm/s. The right ICA end-diastolic velocity (EDV) is 52 cm/s. The right I CA/CCA PSV ratio is 1.7. The external carotid artery (ECA) PSV is 187 cm/s. There is antegrade flow i n the right vertebral artery. LEFT: The left CCA PSV is 103 cm/s. The left ICA PSV is 148 cm/s. The left ICA EDV is 52 cm/s. The left ICA /CCA PSV ratio is 1.7. The ECA PSV is 187 cm/s. There is antegrade flow in the left vertebral artery . IMPRESSION: 1. 50-69% stenosis in the right internal carotid artery by sonographic criteria. 2. 50-69% stenosis in the left internal carotid artery by sonographic criteria. Reviewed, dictated and finalized at location B. IMPRESSION: 1. 50-69% stenosis in the right internal carotid artery by sonographic criteria . 2. 50-69% stenosis in the left internal carotid artery by sonographic criteria.
--- NOTE | ~2023-12-10 | CT_ITS ---
CT Scan of the Chest without Contrast: Clinical Indication: Lung nodules Technique: Contiguous sections were acquired throughout the chest without intravenous contrast. Dose reduction technique was used on this scan by utilizing automated exposure control and iterative recon struction technique. The dose-length product (DLP) was 39.58 mGy-cm. COMPARISON: 08/17/2022 Findings: There is no evidence of any significant mediastinal, hilar or axillary lymphadenopathy. Coronary iván ry calcium cages are present. There is no evidence of pleural or pericardial effusion. There is stable biapical scarring and nodularity. Tiny calcified granulomas are present. Images through the upper abdomen reveal no abnormalities. Impression: Stable biapical scarring and nodularity with tiny scattered calcified granulomas. No overtly suspicio us pulmonary nodule seen. Reviewed, dictated and finalized at location . Impression: Stable biapical scarring and nodularity with tiny scattered calcified granuloma s. No overtly suspicious pulmonary nodule seen.
== END 2023-12-10 14:13 ==
PROVIDERS: PCP Family Medicine; Referring Provider Obstetrics & Gynecology Gynecology; Visit Provider Nurse Practitioner Family
DX: R09.89 Other specified symptoms and signs involving the circulatory and respiratory systems (principal); I65.29 Occlusion and stenosis of unspecified carotid artery; R91.8 Other nonspecific abnormal finding of lung field; I65.23 Occlusion and stenosis of bilateral carotid arteries
CPT/HCPCS: 71250; 93880

== ENCOUNTER 2024-01-09 14:09 | Outpatient (CLI) | payer OTHER, MEDICAID, SELFPAY ==
--- NOTE | ~2024-01-09 | MM_ITS ---
EXAMINATION: MM screening florin BI w amadou HISTORY: Screening TECHNIQUE: Craniocaudal and mediolateral oblique 3-D tomosynthesis images were obtained and synthetic 2-D images were generated. CAD analysis was submitted and interpreted. COMPARISON: Comparison to multiple prior studies sequentially, with oldest reviewed study dated 02/19. BREAST PARENCHYMAL COMPOSITION: Not dense: There are scattered areas of fibroglandular density. FINDINGS: There is no evidence of suspicious mass, calcification, or architectural distortion to sugg est malignancy in either breast. There has been no suspicious interval change. IMPRESSION: 1. No mammographic evidence of malignancy. 2. Recommend routine screening mammography in one year. BI-RADS Category 1: Negative Reviewed, dictated and finalized at location B.
== END 2024-01-09 14:10 ==
PROVIDERS: PCP Family Medicine; Visit Provider Nurse Practitioner
DX: Z12.31 Encounter for screening mammogram for malignant neoplasm of breast (principal)
CPT/HCPCS: 77063; 77067

== ENCOUNTER 2024-11-09 10:52 | Outpatient (CLI) | payer SELFPAY ==
--- NOTE | ~2024-11-09 | XR_ITS ---
Clinical Indication: Pneumonia PA and lateral views of the chest: Comparison: 03/12/2022 Findings: There is hazy left perihilar airspace disease. Right lung clear.. Cardiomediastinal silhou ette is within normal limits. Bones and soft tissues are unremarkable. Impression: Suspected hazy left perihilar pneumonia. Reviewed, dictated and finalized at location . Impression: Suspected hazy left perihilar pneumonia.
== END 2024-11-09 10:53 | disposition home or self-care (01) ==
PROVIDERS: PCP Family Medicine
DX: R09.1 Pleurisy (principal); R50.9 Fever, unspecified; R05.9 Cough, unspecified
CPT/HCPCS: 71046

== ENCOUNTER 2024-12-01 15:40 | Outpatient (CLI) | payer SELFPAY ==
--- NOTE | ~2024-12-01 | XR_ITS ---
XR chest 2V 12/01/2024 15:59 Indication: Pneumonia Procedure: 2 view chest Comparison: Comparison to multiple prior studies sequentially, with oldest reviewed study dated 02/27. Findings: Heart size normal. No focal air space disease, pulmonary edema, pleural effusion or suspect ed pneumothorax. There is pectus excavatum. There is chronic apical pleural thickening/scarring. The lungs are hyperinflated which is consistent with, but not diagnostic of chronic obstructive pulmonary disease. Impression: 1: No acute cardiopulmonary disease. Reviewed, dictated and finalized at location A. Impression: 1: No acute cardiopulmonary disease.
== END 2024-12-01 15:41 | disposition home or self-care (01) ==
PROVIDERS: PCP Family Medicine; Visit Provider Nurse Practitioner Family
DX: J18.9 Pneumonia, unspecified organism (principal)
CPT/HCPCS: 71046

== ENCOUNTER 2024-12-16 12:54 | Outpatient (CLI) | payer SELFPAY ==
--- NOTE | ~2024-12-16 | CT_ITS ---
CT Scan of the Chest without Contrast: Clinical Indication: Chronic cough Technique: Contiguous sections were acquired throughout the chest without intravenous contrast. Dose reduction technique was used on this scan by utilizing automated exposure control and iterative recon struction technique. The dose-length product (DLP) was 129.09 mGy-cm. COMPARISON: 12/10/2023 Findings: There is no evidence of any significant mediastinal, hilar or axillary lymphadenopathy. Coronary iván ry calcifications are present. There is no evidence of pleural or pericardial effusion. Stable mild emphysema with biapical scarring. There is vague groundglass opacity in the anterior left upper lobe/lingula, nonspecific. Images through the upper abdomen reveal no abnormalities. Impression: Vague area of groundglass opacification the anterior left upper lobe/lingula, nonspecific. This could reflect acute pneumonitis or postinflammatory change. Stable biapical scarring and mild emphysema. Reviewed, dictated and finalized at [facility]. Impression: Vague area of groundglass opacification the anterior left upper lobe/lingula, n onspecific. This could reflect acute pneumonitis or postinflammatory change. Stable biapical scarring and mild emphysema.
== END 2024-12-16 12:55 | disposition home or self-care (01) ==
PROVIDERS: PCP Family Medicine; Visit Provider Nurse Practitioner Family
DX: J43.9 Emphysema, unspecified (principal); J18.9 Pneumonia, unspecified organism; J98.4 Other disorders of lung; R05.3 Chronic cough; I25.10 Atherosclerotic heart disease of native coronary artery without angina pectoris
CPT/HCPCS: 71250

== ENCOUNTER 2025-01-15 13:44 | Outpatient (CLI) | payer SELFPAY ==
--- NOTE | ~2025-01-15 | MM_ITS ---
EXAMINATION: MM screening florin BI w amadou HISTORY: Screening TECHNIQUE: Craniocaudal and mediolateral oblique 3-D tomosynthesis images were obtained and synthetic 2-D images were generated. CAD analysis was submitted and interpreted. COMPARISON: Comparison to multiple prior studies sequentially, with oldest reviewed study dated 01/22. BREAST PARENCHYMAL COMPOSITION: Dense: The breasts are heterogeneously dense, which may obscure small masses FINDINGS: There is no evidence of suspicious mass, calcification, or architectural distortion to sugg est malignancy in either breast. There has been no suspicious interval change. IMPRESSION: 1. No mammographic evidence of malignancy. 2. Recommend routine screening mammography in one year. BI-RADS Category 1: Negative Reviewed, dictated and finalized at location B.
== END 2025-01-15 13:45 | disposition home or self-care (01) ==
PROVIDERS: PCP Family Medicine; Visit Provider Nurse Practitioner
DX: Z12.31 Encounter for screening mammogram for malignant neoplasm of breast (principal)
CPT/HCPCS: 77063; 77067

== ENCOUNTER 2025-01-29 13:26 | Outpatient (CLI) | payer SELFPAY ==
--- NOTE | ~2025-01-29 | DEXA_ITS ---
Bone Density Report Name: JAN HULL Age: 59 Sex: Female Ethnicity: White Date of : 1965 Indication: osteopenia; Referring Provider: GODWIN WELSH Study: Bone densitometry was performed. Exam Date: January 29, 2025 Accession number: [id number] Bone Density: Region BMD T-score Z-score Classification AP Spine(L1, L2, L4) 0.950 -0.8 0.6 Normal Femoral Neck (Left) 0.625 -2.0 -0.8 Osteopenia Total Hip (Left) 0.669 -2.2 -1.3 Osteopenia Femoral Neck (Right) 0.591 -2.3 -1.1 Osteopenia Total Hip (Right) 0.680 -2.1 -1.2 Osteopenia Total Hip Mean 0.675 -2.2 -1.3 Osteopenia World Health Organization criteria for BMD impression classify patients as: Normal (T-score at or above -1.0), Osteopenia (T-score between -1.0 and -2.5), or Osteoporosis (T-score at or below -2.5). 10-year Fracture Risk: FRAX not reported because: Premenopausal woman Previous Exams: -- Region Exam Age BMD T-score BMD Change BMD Change Date g/cm2 vs Baseline vs Previous -- AP Spine (L1-L2,L4) 01/29/2025 59 0.950 -0.8 -2.5%* -3.0%* 04/28/2021 55 0.980 -0.5 0.6% 1.1% 02/13/2019 53 0.969 -0.6 -0.5% -0.5% 01/22/2017 51 0.974 -0.5 Total Hip(Left) 01/29/2025 59 0.669 -2.2 -5.0%* -6.3%* 04/28/2021 55 0.714 -1.9 1.4% -0.5% 02/13/2019 53 0.718 -1.8 1.9% 1.9% 01/22/2017 51 0.704 -1.9 Total Hip(Right) 01/29/2025 59 0.680 -2.1 -4.1%* -7.3%* 04/28/2021 55 0.734 -1.7 3.5% 2.1% 02/13/2019 53 0.719 -1.8 1.4% 1.4% 01/22/2017 51 0.709 -1.9 -- *Denotes significance at 95% confidence level, LSC for AP Spine = 0.022 g/cm2, LSC for Total Hip = 0.027 g/cm2 Rate of change results reflect vertebral levels common to all scans Clinical Information Provided by Patient: Has used the following medications: Fosamax (i.e. alendronate), Vitamin D, Calcium Patient maximum height was 64 Menopause Age: 50 Does not regularly consume dairy products Drinks caffeinated beverages Onset of menses at age 13 Premenopausal Number of children 2 Impression: The patient's bone mass is within expected range for age, gender and ethnicity. The BMD for the AP Spine (L1-L2,L4) decreased, changing by -3.0% since the last DXA exam. The BMD for the Total Hip(Left) decreased, changing by -6.3% since the last DXA exam. The BMD for the Total Hip(Right) decreased, changing by -7.3% since the last DXA exam. Discussion: BONE DENSITY IS WITHIN EXPECTED LIMITS FOR AGE, SEX AND RACE. Bone density is within expected limits for age, sex and race at all sites measured. The patient should follow a healthful lifestyle (good nutrition with adequate calcium and vitamin D, and appropriate weight-bearing exercise). Follow-Up: Consider repeating this study in 2 years to reassess this patient's status, or sooner if there is some new clinical indication. Reported by: DEANNA on 01/29/2025 1:56:00 PM. Reviewed, dictated and finalized at location A.
== END 2025-01-29 13:27 | disposition home or self-care (01) ==
PROVIDERS: PCP Family Medicine; Visit Provider Obstetrics & Gynecology Gynecology
DX: M85.89 Other specified disorders of bone density and structure, multiple sites (principal); Z13.820 Encounter for screening for osteoporosis
CPT/HCPCS: 77080